=== PATIENT | female | born 1965 | race Caucasian/White ===

== ENCOUNTER 2018-12-10 20:49 | Emergency (ER) | payer OTHER ==
[~2018-12-10] VITALS: Ht 170.2 cm; Wt 79.0 kg
[2018-12-10] MEDS ORDERED: DIPHENHYDRAMINE 50MG/ML VIAL IM STA (21:51)
[2018-12-10] MEDS ORDERED: LORAZEPAM 2MG/ML CPJ IM STA (21:51)
[2018-12-10] MEDS ORDERED: HALOPERIDOL LACTATE 5MG/ML VIAL IM ONE (22:00)
[2018-12-10 22:44] LABS: CHLORIDE 106 mEq/L (98-107)
[2018-12-10 22:48] LABS: ETHANOL BLOOD < 10 mg/dL
[2018-12-10 22:52] LABS: BASOPHILS % 0.6 % (0.0-2.0); EOSINOPHILS % 1.8 % (0.0-5.0); HEMATOCRIT. 39.5 % (36.0-48.0); HEMOGLOBIN. 13.5 g/dL (12.0-16.0); MEAN CORPUSCULAR HEMOGLOBIN 31.6 pg (28.0-32.0); MEAN CORPUSCULAR VOLUME 92.6 fL (81.0-99.0); MEAN PLATELET VOLUME 12.1 fl (7.4-10.4); MONOCYTES % 8.2 % (2.0-8.0); NEUTROPHILS % 65.4 % (40.0-76.0); PLATELET 155 x1000/uL (130-400); RED BLOOD CELL COUNT 4.27 mill/uL (4.2-5.4); RED CELL DISTRIBUTION WIDTH 15.5 % (11.6-14.6)
[2018-12-11 00:14] LABS: CLARITY URINE CLEAR (CLEAR); COLOR URINE YELLOW (YELLOW); KETONES URINE NEGATIVE (NEGATIVE); LEUKOCYTE ESTERASE URINE NEGATIVE (NEGATIVE); NITRITE URINE NEGATIVE (NEGATIVE); OCCULT BLOOD URINE NEGATIVE (NEGATIVE); PROTEIN URINE NEGATIVE (NEGATIVE); SPECIFIC GRAVITY URINE 1.009 (1.005-1.030); UROBILINOGEN URINE 0.2 E.U./dL (0.2-1.0)
[2018-12-11 00:36] LABS: *COCAINE SCREEN URINE NEGATIVE (NEGATIVE); METHADONE URINE SCREEN NEGATIVE (NEGATIVE); OPIATES URINE SCREEN NEGATIVE (NEGATIVE)
[2018-12-11 00:37] LABS: *AMPHETAMINES SCREEN URINE NEGATIVE (NEGATIVE); *BARBITURATES SCREEN URINE NEGATIVE (NEGATIVE); *BENZODIAZEPINES SCREEN URINE NEGATIVE (NEGATIVE); CANNABINOID URINE SCREEN NEGATIVE (NEGATIVE); PHENCYCLIDINE URINE SCREEN NEGATIVE (NEGATIVE)
[2018-12-11] MEDS ORDERED: HALOPERIDOL LACTATE 5MG/ML VIAL IM ONE ×2 (08:00→09:00)
[2018-12-11] MEDS ORDERED: LORAZEPAM 2MG/ML CPJ IM PRN (08:15)
[2018-12-11] MEDS ORDERED: DIPHENHYDRAMINE 50MG/ML VIAL IM PRN (08:15)
[2018-12-11] MEDS ORDERED: OLANZAPINE 10 MG/VIAL IM ONE (12:00)
[2018-12-11] MEDS ORDERED: LORAZEPAM 2MG/ML CPJ IM ONE ×2 (12:00→18:45)
[2018-12-11] MEDS ORDERED: ZIPRASIDONE MESYLATE 20MG/VIAL IM ONE (18:45)
[2018-12-11] MEDS ORDERED: DIPHENHYDRAMINE 50MG/ML VIAL IM ONE (18:45)
[2018-12-11 20:14] VITALS: BP 108/55
== END 2018-12-11 20:17 ==
LOC: ER 22:54
DX: F23 Brief psychotic disorder (principal); F32.9 Major depressive disorder, single episode, unspecified; F20.9 Schizophrenia, unspecified; F17.210 Nicotine dependence, cigarettes, uncomplicated; Z78.1 Physical restraint status
CPT/HCPCS: 36415; 80053; 80305; 80307; 80320; 80329; 81003; 81025; 85025; 96372; 99284; J1200; J1630; J2060; J3486; J3490; Z7610; G0480